=== PATIENT | female | born 1955 | race Two or more races ===

== ENCOUNTER → 2023-11-13 | Emergency (ER) | payer OTHER ==
[~2023-11-13] VITALS: Ht 154.9 cm; Wt 55.8 kg
[~2023-11-13] MED LIST: 0.9 % SODIUM CHLORIDE 500 ML IV ONE; FAMOTIDINE/PF 20 MG/2 ML VIAL IV ONE; HYOSCYAMINE SULFATE 0.125 MG TAB.SUBL SL ONE; INTESTINEX680 M1 PO; IRBESARTAN300 MG PO; KETOROLAC TROMETHAMINE 30 MG VIAL IV ONE; LACTOBACILLUS ACIDOPHILUS 1 CAP CAP PO ONE; LEVSIN0.125 MG PO; METRONIDAZOLE/SODIUM CHLORIDE 500 MG/100 ML PIGGYBACK IV ONE; METRONIDAZOLE500 MG PO; ONDANSETRON HCL 2 MG/ML VIAL IV ONE; ONDANSETRON HCL4 MG PO
[2023-11-13 15:39] LABS: HEMATOCRIT 39.1 % (36.0-45.00); HEMOGLOBIN 13.2 g/dL (12.0-15.00); MEAN CORPUSCULAR HEMOGLOBIN 30.3 pg (27.00-32.0); MEAN CORPUSCULAR HGB CONC 33.7 g/dl (32.0-36.0); PLATELET COUNT 320 K/uL (150-450); RED BLOOD COUNT 4.35 M/uL (4.00-6.00); RED CELL DISTRIBUTION WIDTH 13.5 % (11.5-14.5)
[2023-11-13 16:06] LABS: ALBUMIN 3.3 gm/dL (3.4-5.0); BILIRUBIN TOTAL 0.25 mg/dL (0.3-1.2); CALCIUM 9.4 mg/dL (8.5-10.1); CREATININE SERUM 0.62 mg/dL (0.55-1.02); GFR 96.31; GLOBULINA 4.5 G/DL (2.4-3.5); PH,URINE 5.5 (5.0-8.0); POTASSIUM 4.07 mEq/L (3.5-5.1); TOTAL PROTEIN 7.8 gm/dL (6.4-8.2); URINE APPEARANCE Clear; URINE BILIRRUBIN Negative (NEGATIVE); URINE BLOOD Small; URINE COLOR Yellow; URINE GLUCOSE Negative (NEGATIVE); URINE KETONE Negative (NEGATIVE); URINE LEUKOCYTE Small; URINE NITRATE Negative; URINE PROTEIN Trace (NEGATIVE); URINE UROBILINOGEN 0.2 E.U./dl
[2023-11-13 16:09] LABS: URINE BACTERIA 319.9 uL (0.0-1933); URINE RBC 10.3 uL (0.0-20.8); URINE WBC 31.8 uL (0.0-23.2)
[2023-11-13 16:20] LABS: URINE CAST 0.76 uL (0.0-1.40)
== END | disposition home or self-care (01) ==
LOC: ER 13:11
PROVIDERS: Nurse Practitioner Family
DX: K52.9 Noninfective gastroenteritis and colitis, unspecified (principal); R10.9 Unspecified abdominal pain; I10 Essential (primary) hypertension; Z88.9 Allergy status to unspecified drugs, medicaments and biological substances
CPT/HCPCS: 36415; 74177; 96365; 96366; 99284; J1885; J2405; J3490 ×2; J7042; Q9965